=== PATIENT | female | born 1970 | race Asian ===

== ENCOUNTER 2019-02-18 15:27 | Emergency (ER) | payer MEDICAID, OTHER ==
[~2019-02-18] VITALS: Ht 162.6 cm; Wt 72.6 kg
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
[2019-02-18] MEDS ORDERED: Acetaminophen 500mg (ES) tab ORAL ONE (16:00)
[2019-02-18 16:06] VITALS: BP 159/87
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
[2019-02-18 16:45] VITALS: BP 138/86
--- NOTE | 2019-02-18 16:45 | NUR ---
ER Nurse Note: Pt seen, treated, medically cleared for discharge by ERMD. Discharge instuctions given with repeat verbalization by pt. Emphasized to follow up with primay care provider and psych referal. Informed pt and suggested theraputic outlets for stress management. All orders completed per ERMD orders. Pt a&ox4, VSS, no signs of distress. ID band removed. All questions answered per pt's questions. Pt left with all belongings, left with own transportation.
--- NOTE | 2019-02-18 21:50 | Emergency Room Report ---
History of Present Illness General Chief Complaint: General Complaint Source: Patient, Significant Other Present Illness HPI 48-year-old female presents ED for evaluation. Patient recieved news of a which occurred upstairs here at [facility]. Early after receiving the news patient became tearful and started to feel numb with headache. Patient was brought to the ED for evaluation. at bedside states that patient did not receive the news very well. Patient denies any chest pain or shortness of breath. States she is moving all of her extremities. No history of anxiety. Complaining of a headache, dull, 5 out of 10, nonradiating. Denies photophobia or blurry vision. No other aggravating relieving factors. Denies any other associated symptoms Allergies: Coded Allergies: No Known Allergies (Unverified , 02/18/19) Patient History Past Medical History: DM Past Surgical History: none Pertinent Family History: none Social History: Denies: smoking, alcohol use, drug use Last Menstrual Period: na Now: No Immunizations: UTD Reviewed Nursing Documentation: PMH: Agreed; PSxH: Agreed Nursing Documentation-PMH Hx Diabetes: Yes Review of Systems All Other Systems: negative except mentioned in HPI Physical Exam Vital Signs Date Time Temp Pulse Resp B/P (MAP) Pulse Ox O2 Delivery O2 Flow Rate FiO2 02/18/19 15:41 97.9 69 13 159/87 (111) 100 Room Air Sp02 EP Interpretation: reviewed, normal General Appearance: no apparent distress, alert, GCS 15, non-toxic Head: normocephalic, atraumatic Eyes: bilateral eye normal inspection, bilateral eye PERRL ENT: hearing grossly normal, normal pharynx, no angioedema, normal voice Neck: full range of motion, supple/symm/no masses Respiratory: chest non-tender, lungs clear, normal breath sounds, speaking full sentences Cardiovascular #1: regular rate, rhythm, no edema Cardiovascular #2: 2+ carotid (R), 2+ carotid (L), 2+ radial (R), 2+ radial (L) , 2+ dorsalis pedis (R), 2+ dorsalis pedis (L) Gastrointestinal: normal bowel sounds, non tender, soft, non-distended, no guarding, no rebound Rectal: deferred Genitourinary: normal inspection, no CVA tenderness Musculoskeletal: back normal, gait/station normal, normal range of motion, non- tender Neurologic: alert, oriented x3, responsive, motor strength/tone normal, sensory intact, speech normal Psychiatric: judgement/insight normal, memory normal, anxious Reflexes: 3+ bicep (R), 3+ bicep (L), 3+ tricep (R), 3+ tricep (L), 3+ knee (R) , 3+ knee (L) Lymphatic: no adenopathy Medical Decision Making Diagnostic Impression: Primary Impression: Acute stress reaction ER Course Hospital Course 48 yo F presents with crying, numbness to extremities, headache after in family Differential diagnoses include: psychosis dehydration, anxiety Clinical course Patient placed on stretcher. on citizen participation specialist. After initial history and reveals female in no acute distress. Patient is tearful but answering questions appropriately. Maintaining good eye contact. 5 out of 5 strength to all extremities, no slurred speech or facial droop. Sensations intact. No nuchal rigidity. I ordered EKG, Tylenol, Zofran EKGnormal sinus rhythm no acute ischemic changes interpreted by me Allowed to rest. Reassessment patient is feeling better. states that he would prefer to take patient home. Consistent with acute stress reaction secondary to and family. safe for discharge for close outpatient follow-up. States he has a PMD I. I feel this is a highly complex case requiring extensive working including EKG/Rhythm strip, Xray/CT/US, Blood/urine lab work, repeat exams while in ED, and administration of strong opiates/narcotics for pain control, admission to hospital or close patient follow up. Diagnosis -acute stress reaction Stable and discharged to home. Followup with PMD. Return to ED if symptoms recur or worse EKG Diagnostic Results Rate: normal Rhythm: NSR ST Segments: no acute changes ASA given to the pt in ED: No Rhythm Strip Diag. Results EP Interpretation: yes Rhythm: NSR, no PVC's, no ectopy Last Vital Signs Date Time Temp Pulse Resp B/P (MAP) Pulse Ox O2 Delivery O2 Flow Rate FiO2 02/18/19 16:45 97.9 68 15 138/84 100 Room Air Status: improved Disposition: HOME, SELF-CARE Condition: Stable Referrals: NOT CHOSEN IPA/,REFERRING (PCP) Porsha [facility] Patient Instructions: Panic Attacks, [id number] Akil Ragland MD Feb 18, 2019 21:50
--- NOTE | 2019-02-19 11:31 | Cardiology Report ---
APPROVED REPORT EKG Measurement Heart [id number] Normal sinus rhythm Cannot rule out Anterior infarct, age undetermined Abnormal ECG
== END 2019-02-18 16:45 | disposition home or self-care (01) ==
LOC: EMR 16:30
DX: F43.0 Acute stress reaction (principal); E11.9 Type 2 diabetes mellitus without complications
CPT/HCPCS: 93005; 99283